=== PATIENT | female | born 1970 | race Caucasian/White ===

== ENCOUNTER 2021-12-15 16:48 | Emergency (ER) | payer MEDICAID ==
[~2021-12-15] VITALS: Ht 157.5 cm; Wt 111.1 kg
--- NOTE | 2021-12-15 16:48 | NUR ---
PT BIBA TO BED 01.
--- NOTE | 2021-12-15 17:00 | NUR ---
X-RAY AT BEDSIDE.
[2021-12-15 17:10] VITALS: BP 104/63
--- NOTE | 2021-12-15 17:24 | NUR ---
51 Y/O F BIBA C/O TRACH DISCOMFORT. PT[facility] FROM [facility]. ALLERGIES: PEMECILLIN PMH: ACUTE HYPOXEMIC RESPIRATORY FAILURE 06/24/2020, DYSPHAGIA, PULMONARY EMBOLISM,HTN, COVID 19 , JANSEN-JOHSON SYINDROME, DM 2.
--- NOTE | 2021-12-15 18:10 | NUR ---
pt came in on vent Vt 400 Peep of 5 rr10 FiO2 28% Patient was alert and oriented. C/O trach discomfort Pt pass a 30 min SBT with high VT and low support. Pt was placed on RA SPO2 96% HR98 with cool mist aerosol @ 28%.
--- NOTE | 2021-12-15 18:35 | NUR ---
2ND HOLT SENT TO LAB BY CARLOS ARNOLD GIVEN-TO KAREN CASIANO
--- NOTE | 2021-12-15 19:00 | NUR ---
TALK TO ENRIQUETA RN NEUROLOGIST IN THE [facility] ABOUT PT IS ALL CLEAR AND READY TO GO BACK. NUMBER FOR THE TRANSPORTATION IS [phone] [facility] WILL CALL TO ARRANGE TRANSPORTATION.
--- NOTE | 2021-12-15 19:01 | NUR ---
Yomi griffinjoelle in ED - 12/15/21 at 1914 by MEDRJJ Chart checked and completed. The patient's care was reviewed and supervised by Minna Mckeon RN.
--- NOTE | 2021-12-15 19:22 | NUR ---
GAVE REPORT TO ABDULAZIZ GONZALEZ.
--- NOTE | 2021-12-15 19:34 | NUR ---
PT IS AWAKE AND ALERT. GIVEN WATER PER REQUEST. ALL NEEDS MET AT THIS TIME.
--- NOTE | 2021-12-15 21:11 | NUR ---
PT SUCTIONED PER REQUEST X1. PT VOCALIZED RELIEF.
--- NOTE | 2021-12-15 21:32 | NUR ---
PT STATES SHE FEELS HOT AND BACK IS UNCOMFORTABLE. PT REPOSITIONED AND GIVEN A COOL TOWEL AND A HAND HELD RAN. PT STATES THIS HELPS SO MUCH, ALL NEEDS MET AT THIS TIME.
--- NOTE | 2021-12-15 22:00 | NUR ---
PT SUCTIONED PER REQUEST X1. PT VOCALIZED RELIEF.
--- NOTE | 2021-12-15 22:48 | NUR ---
PT APPEARS TO BE RESTING. EYES ARE CLOSED, EQUAL RISE AND FALL OF CHEST WALL. PT OPENS EYES TO SOUND. ALL NEEDS MET AT THIS TIME. BED LOCKED IN LOWEST POSITION, SIDE RAILS X2 FOR SAFETY.
[2021-12-16 00:07] VITALS: BP 106/64
--- NOTE | 2021-12-16 00:07 | NUR ---
Patient discharged with v/s stable. Written and verbal after care instructions given and explained. Patient verbalized understanding. Ambulance Transport with to retirement. All questions addressed prior to discharge. Advised to follow up with PMD.
== END 2021-12-16 00:07 ==
LOC: MED 16:48
DX: J95.03 Malfunction of tracheostomy stoma (principal); I10 Essential (primary) hypertension; Z88.0 Allergy status to penicillin; Z98.890 Other specified postprocedural states
CPT/HCPCS: 70490; 71045; 99285